=== PATIENT | female | born 1980 | race Caucasian/White ===

== ENCOUNTER 2019-04-09 17:55 | Emergency (ER) | payer BC ==
[~2019-04-09] VITALS: Ht 165.1 cm; Wt 89.5 kg
--- NOTE | 2019-04-09 19:20 | NUR ---
ASSUMED CARE OF PT AT THIS TIME. THIS IS A 38 YO FEMALE WHO PRESENTS TO THE ER C/O NAUSEA AND PAIN INTERMITTENTLY X 1 WEEK, WORSE TODAY. PT TENDER UPON PALP TO BILAT LOWER ABD QUAD, RLQ WORSE THAN LLQ. PT AO X 4. SKIN PWD. RESP EVEN AND UNLABORED. PT ON BP AND O2 MONITORS. PT REFUSES OFFER OF PAIN/NAUSEA MEDICATION. PT AWARE WE ARE WAITING FOR LAB/IMAGING RESULTS. MOTHER AT BEDSIDE. CALL LIGHT WITHIN REACH. WILL CONT TO MONITOR PT.
[2019-04-09 19:25] LABS: BASOPHILS # (AUTO) 0.02 x10^3/uL (0-0.1); BASOPHILS % (AUTO) 0 % (0-1); EOSINOPHILS # (AUTO) 0.13 x10^3/uL (0-0.4); EOSINOPHILS % (AUTO) 1 % (1-7); LYMPHOCYTES # (AUTO) 2.48 x10^3/uL (1-3.4); LYMPHOCYTES % (AUTO) 21 % (22-44); MD NO; MEAN CORPUSCULAR HEMOGLOBIN 28.9 pg (27.0-34.8); MEAN CORPUSCULAR HGB CONC 33.3 g/dL (32.4-35.8); MEAN CORPUSCULAR VOLUME 86.9 fL (80-100); MONOCYTES % (AUTO) 4 % (2-9); NEUTROPHILS % (AUTO) 73 % (42-75); PLATELET COUNT 304 x10^3/uL (130-400); RED BLOOD COUNT 4.62 x10^6/uL (3.82-5.3); RED CELL DISTRIBUTION WIDTH 13.7 % (9.6-15.2)
[2019-04-09] MEDS ORDERED: MORPHINE SULFATE 4 MG/ML, 1ML IVPush PRN (19:30)
[2019-04-09] MEDS ORDERED: SODIUM CHLORIDE FLUSH 10ML SYR IVF ONE (19:30)
[2019-04-09] MEDS ORDERED: ONDANSETRON 2MG/ML, 2ML IVPush ONE (19:30)
[2019-04-09 19:38] LABS: ANION GAP 7 mmol/L (5-15); CALCIUM 9.5 mg/dL (8.5-10.1); CHLORIDE 106 mmol/L (98-107); CREATININE 0.78 mg/dL (0.55-1.02)
[2019-04-09 19:39] LABS: ALANINE AMINOTRANSFERASE 42 U/L (12-78); ALBUMIN 4.3 g/dL (3.4-5.0)
[2019-04-09 19:41] LABS: ALKALINE PHOSPHATASE 67 U/L (45-117); BILIRUBIN,TOTAL 0.4 mg/dL (0.2-1.0); TOTAL PROTEIN 8.2 g/dL (6.4-8.2)
[2019-04-09] MEDS ORDERED: METF500T17 PO (19:47)
[2019-04-09] MEDS ORDERED: ATOR40TA PO (19:47)
[2019-04-09] MEDS ORDERED: LEVO75TA5 PO (19:47)
[2019-04-09 20:10] LABS: HCG UR SG 1.018 (1.003-1.030)
[2019-04-09 20:11] LABS: MICROSCOPIC INDICATED
[2019-04-09 20:22] LABS: CULTURE INDICATED? YES
[2019-04-09] MEDS ORDERED: OMNIPAQUE 350 MG/ML, 100ML BOTTLE ONE (21:13)
[2019-04-09] MEDS ORDERED: KETOROLAC 30 MG/1 ML ONE (21:19)
[2019-04-09] MEDS ORDERED: ONDANSETRON 2MG/ML, 2ML ONE (21:19)
[2019-04-09] MEDS ORDERED: KETOROLAC 30 MG/1 ML IVPush ONE (21:30)
[2019-04-09 21:44] VITALS: BP 111/80
== END 2019-04-09 21:46 | disposition home or self-care (01) ==
LOC: ED 21:35
DX: N83.292 Other ovarian cyst, left side (principal); N83.291 Other ovarian cyst, right side; E11.9 Type 2 diabetes mellitus without complications; E78.5 Hyperlipidemia, unspecified; E03.9 Hypothyroidism, unspecified
CPT/HCPCS: 36415; 74177; 80053; 81001; 81025; 83690; 85025; 87086; 96374; 99284; J1885; Q9967